=== PATIENT | female | born 1940 | race Caucasian/White ===

== ENCOUNTER → 2016-06-29 | Outpatient (CLI) | payer MEDICARE ==
--- NOTE | 2016-06-29 16:04 | BD ---
EXAMINATION TYPE: MG DEXA axial skeleton. DATE OF EXAM: 06/29/2016 12:58 PM COMPARISON: 2012 CLINICAL HISTORY: disorder of bone and post menopausal female Height: 5' Weight: 141 FRAX RISK QUESTIONS: Alcohol (3 or more units per day): no Family History (Parent hip fracture): no Glucocorticoids (More than 3mos): no (Ex: prednisone, prednisolone, methylprednisolone, dexamethasone, and hydrocortisone). History of Fracture in Adulthood: yes Secondary Osteoporosis: 1. Type 1 Diabetes: no 2. Hyperthyroidism: no 3. Menopause before 45: no 4. Malnutrition: no 5. Chronic liver disease: no Rheumatoid Arthritis: no Current Tobacco Use: no RISK FACTORS HISTORY OF: Other Fractures since Age 52: When: 2000 Active: Postmenopausal woman: MEDICATIONS: Thyroid Medications: Which medication: Levothyroxine How Lon -9 years Additional Medications: prisolec Additional History: post menopausal EXAM MEASUREMENTS: Bone mineral densitometry was performed using the [employer] System. Bone mineral density as measured about the Lumbar spine is: ----- L1-L4(G/cm2): 1.254 T Score Values are ----- L2: 0.3 ----- L3: 0.9 ----- L4: 1.2 ----- L1-L4: 0.6 Bone mineral density has: Decreased -7.1% since study of: 12/30/2012 Bone mineral density about the R hip (g/cm2): 0.877 Bone mineral density about the L hip (g/cm2): 0.767 T Score values are as follows: -----R Neck: -1.2 -----L Neck: -1.9 -----R Intertrochanter: 0.5 -----L Intertrochanter: 0.3 Bone mineral density has: Decreased -1.8% since study of: 12/30/2000 IMPRESSION: Osteopenia (T Score between -2.5 and -1 as noted by T score values: Nirav Hips There is slightly increased risk of fracture and the patient may be considered for treatment. Re-Screen 1-2 years. NOTE: T-SCORE=SD OF THE YOUNG ADULT MEAN.
== END | disposition home or self-care (01) ==
LOC: RADBDWWP 12:34
PROVIDERS: ATTEND Obstetrics & Gynecology
DX: M85.88 Other specified disorders of bone density and structure, other site (principal); M81.0 Age-related osteoporosis without current pathological fracture; M89.9 Disorder of bone, unspecified
CPT/HCPCS: 77080

== ENCOUNTER → 2017-06-11 | Outpatient (CLI) | payer MEDICARE ==
--- NOTE | 2017-06-14 09:07 | MM ---
Reason for exam: screening (asymptomatic). Last mammogram was performed 1 year and 2 months ago. History: Patient is postmenopausal. Physical Findings: A clinical breast exam by your physician is recommended on an annual basis and results should be correlated with mammographic findings. MG 3D Screening Mammo W/Cad Bilateral CC and MLO view(s) were taken. Prior study comparison: March 31, 2016, bilateral MG 3d screening mammo w/cad. March 27, 2015, bilateral MG 3d screening mammo w/cad. The breast tissue is heterogeneously dense. This may lower the sensitivity of mammography. No suspicious abnormality. No significant changes when compared with prior studies. ASSESSMENT: Negative, BI-RAD 1 RECOMMENDATION: Routine screening mammogram of both breasts in 1 year.
== END | disposition home or self-care (01) ==
LOC: RADMAMWWP 10:54
PROVIDERS: ATTEND Internal Medicine
DX: Z12.31 Encounter for screening mammogram for malignant neoplasm of breast (principal)
CPT/HCPCS: 77063; 77067

== ENCOUNTER → 2018-07-27 | Outpatient (CLI) | payer MEDICARE ==
--- NOTE | 2018-07-29 10:08 | MM ---
Reason for exam: screening (asymptomatic). Last mammogram was performed 1 year and 1 month ago. History: Patient is postmenopausal. Physical Findings: A clinical breast exam by your physician is recommended on an annual basis and results should be correlated with mammographic findings. MG 3D Screening Mammo W/Cad Bilateral CC and MLO view(s) were taken. Prior study comparison: June 11, 2017, bilateral MG 3d screening mammo w/cad. March 31, 2016, bilateral MG 3d screening mammo w/cad. The breast tissue is heterogeneously dense. This may lower the sensitivity of mammography. No significant changes when compared with prior studies. ASSESSMENT: Benign, BI-RAD 2 RECOMMENDATION: Routine screening mammogram of both breasts in 1 year.
== END | disposition home or self-care (01) ==
LOC: RADMAMWWP 10:57
PROVIDERS: ATTEND Obstetrics & Gynecology
DX: Z12.31 Encounter for screening mammogram for malignant neoplasm of breast (principal)
CPT/HCPCS: 77063; 77067

== ENCOUNTER 2020-02-15 09:14 | Observation (INO) | payer MEDICARE ==
[2020-02-15] MEDS ORDERED: ASPIRIN 81 MG PO STA (09:51)
[2020-02-15] MEDS ORDERED: NITROGLYCERIN OINT 1 INCH/GM PACKET TOPICAL STA (09:51)
--- NOTE | 2020-02-15 09:54 | ED ---
General Adult HPI - General Chief complaint: Chest Pain Stated complaint: Chest pain Time Seen by Provider: 02/15/20 09:20 Source: patient, EMS, RN notes reviewed Mode of arrival: EMS Limitations: no limitations - History of Present Illness Initial comments: Patient is a pleasant 79-year-old female presenting to the emergency department complaints of discomfort of her chest and right arm and neck. Onset of symptoms was when she woke this morning. Patient did have some associated palpitations. Symptoms were moderate however now are mild. Patient states discomfort does increase slightly with position changes. No history of similar symptoms prev iously. No associated dyspnea. No weakness. - Related Data Home Medications Medication Instructions Recorded Confirmed Levothyroxine Sodium [Synthroid] 25 mcg PO DAILY 03/19/15 02/15/20 Omeprazole [PriLOSEC] 20 mg PO DAILY 03/19/15 02/15/20 Allergies Allergy/AdvReac Type Severity Reaction Status Date / Time No Known Allergies Allergy Verified 02/15/20 10:45 Review of Systems ROS Statement: Those systems with pertinent positive or pertinent negative responses have been documented in the HPI. ROS Other: All systems not noted in ROS Statement are negative. Constitutional: Denies: fever Eyes: Denies: eye pain ENT: Denies: ear pain Respiratory: Denies: cough, dyspnea Cardiovascular: Reports: as per HPI, chest pain, palpitations Endocrine: Denies: fatigue Gastrointestinal: Denies: abdominal pain Genitourinary: Denies: dysuria Musculoskeletal: Denies: back pain Skin: Denies: rash Neurological: Denies: weakness Past Medical History History of Any Multi-Drug Resistant Organisms: None Reported Additional Past Surgical History / Comment(s): Gallblader surgery & ovary surgery Past Psychological History: Anxiety Smoking Status: Never smoker Past Alcohol Use History: None Reported Past Drug Use History: None Reported General Exam Limitations: no limitations General appearance: alert, in no apparent distress Head exam: Present: normocephalic Eye exam: Present: normal appearance Neck exam: Present: normal inspection Respiratory exam: Present: normal lung sounds bilaterally. Absent: chest wall tenderness Cardiovascular Exam: Present: regular rate, normal rhythm Expanded Peripheral pulses: 2+: Radial (R), Radial (L), Dorsalis Pedis (R), Dorsalis Pedis (L) GI/Abdominal exam: Present: soft. Absent: tenderness Extremities exam: Present: normal inspection, full ROM, tenderness (Minimal tenderness right shoulder and trapezius region). Absent: pedal edema, calf tenderness Neurological exam: Present: alert. Absent: motor sensory deficit Psychiatric exam: Present: normal affect, normal mood Skin exam: Present: normal color Course Vital Signs 02/15/20 02/15/20 02/15/20 09:19 10:23 11:00 Temperature 97.8 F Pulse Rate 88 64 64 Respiratory 18 18 18 Rate Blood Pressure 149/84 142/72 126/73 O2 Sat by Pulse 96 96 96 Oximetry 02/15/20 12:00 Temperature Pulse Rate 65 Respiratory 18 Rate Blood Pressure 135/78 O2 Sat by Pulse 96 Oximetry EKG Findings - EKG Comments: EKG Findings:: Normal sinus rhythm at 65. MD 126. QRS 84. QT 404. QTC 420. Normal axis. Normal QRS. Nonspecific T waves. Medical Decision Making - Medical Decision Making Patient reevaluated and resting comfortably in bed. Patient and family updated on results and plan. Case was discussed in detail with Dr. Singleton, who will admit covering for Dr. Rosario. - Lab Data Result diagrams: 02/15/20 10:00 02/15/20 10:00 Lab Results 02/15/20 02/15/20 02/15/20 Range/Units 10:00 10:00 10:00 WBC 4.9 (3.8-10.6) k/uL RBC 5.42 H (3.80-5.40) m/uL Hgb 14.4 (11.4-16.0) gm/dL Hct 45.0 (34.0-46.0) % MCV 83.1 (80.0-100.0) fL MCH 26.5 (25.0-35.0) pg MCHC 31.9 (31.0-37.0) g/dL RDW 14.4 (11.5-15.5) % Plt Count 274 (150-450) k/uL Neutrophils % 60 % Lymphocytes % 26 % Monocytes % 9 % Eosinophils % 2 % Basophils % 1 % Neutrophils # 2.9 (1.3-7.7) k/uL Lymphocytes # 1.3 (1.0-4.8) k/uL Monocytes # 0.4 (0-1.0) k/uL Eosinophils # 0.1 (0-0.7) k/uL Basophils # 0.1 (0-0.2) k/uL PT 9.8 (9.0-12.0) sec INR 0.9 (<1.2) APTT 26.6 (22.0-30.0) sec D-Dimer 0.93 H (<0.60) mg/L FEU Sodium 139 (137-145) mmol/L Potassium 4.0 (3.5-5.1) mmol/L Chloride 105 (98-107) mmol/L Carbon Dioxide 28 (22-30) mmol/L Anion Gap 6 mmol/L BUN 12 (7-17) mg/dL Creatinine 0.77 (0.52-1.04) mg/dL Est GFR (CKD-EPI)AfAm 86 (>60 ml/min/1.73 sqM) Est GFR (CKD-EPI)NonAf 75 (>60 ml/min/1.73 sqM) Glucose 94 (74-99) mg/dL Calcium 9.2 (8.4-10.2) mg/dL Magnesium 2.1 (1.6-2.3) mg/dL Total Bilirubin 1.3 (0.2-1.3) mg/dL AST 32 (14-36) U/L ALT 14 (4-34) U/L Alkaline Phosphatase 75 (38-126) U/L Troponin I (0.000-0.034) ng/mL Total Protein 7.1 (6.3-8.2) g/dL Albumin 4.1 (3.5-5.0) g/dL Amylase 55 (30-110) U/L Lipase 69 (23-300) U/L 02/15/20 Range/Units 10:00 WBC (3.8-10.6) k/uL RBC (3.80-5.40) m/uL Hgb (11.4-16.0) gm/dL Hct (34.0-46.0) % MCV (80.0-100.0) fL MCH (25.0-35.0) pg MCHC (31.0-37.0) g/dL RDW (11.5-15.5) % Plt Count (150-450) k/uL Neutrophils % % Lymphocytes % % Monocytes % % Eosinophils % % Basophils % % Neutrophils # (1.3-7.7) k/uL Lymphocytes # (1.0-4.8) k/uL Monocytes # (0-1.0) k/uL Eosinophils # (0-0.7) k/uL Basophils # (0-0.2) k/uL PT (9.0-12.0) sec INR (<1.2) APTT (22.0-30.0) sec D-Dimer (<0.60) mg/L FEU Sodium (137-145) mmol/L Potassium (3.5-5.1) mmol/L Chloride (98-107) mmol/L Carbon Dioxide (22-30) mmol/L Anion Gap mmol/L BUN (7-17) mg/dL Creatinine (0.52-1.04) mg/dL Est GFR (CKD-EPI)AfAm (>60 ml/min/1.73 sqM) Est GFR (CKD-EPI)NonAf (>60 ml/min/1.73 sqM) Glucose (74-99) mg/dL Calcium (8.4-10.2) mg/dL Magnesium (1.6-2.3) mg/dL Total Bilirubin (0.2-1.3) mg/dL AST (14-36) U/L ALT (4-34) U/L Alkaline Phosphatase (38-126) U/L Troponin I <0.012 (0.000-0.034) ng/mL Total Protein (6.3-8.2) g/dL Albumin (3.5-5.0) g/dL Amylase (30-110) U/L Lipase (23-300) U/L - Radiology Data Radiology results: report reviewed (CT and show negative for pulmonary embolism. There is some concern for pulmonary arterial hypertension), image reviewed (Chest x-ray shows no acute process) Disposition Clinical Impression: Chest pain Disposition: ADMITTED IP TO THIS HOSP Is patient prescribed a controlled substance at d/c from ED?: No Referrals: Urban Rosario MD [Primary Care Provider] - 1-2 days Decision Time: 12:21
[2020-02-15 10:26] LABS: Basophils # (A) 0.1 k/uL (0-0.2); Basophils % (A) 1 %; Eosinophils # (A) 0.1 k/uL (0-0.7); Eosinophils % (A) 2 %; HGB 14.4 gm/dL (11.4-16.0); Lymphocytes # (A) 1.3 k/uL (1.0-4.8); Lymphocytes % (A) 26 %; MCH 26.5 pg (25.0-35.0); MCHC 31.9 g/dL (31.0-37.0); MCV 83.1 fL (80.0-100.0); Mean Platelet Volume 6.6; Monocytes # (A) 0.4 k/uL (0-1.0); Monocytes % (A) 9 %; Neutrophils # (A) 2.9 k/uL (1.3-7.7); Neutrophils % (A) 60 %; Platelet Count 274 k/uL (150-450); RBC 5.42 m/uL (3.80-5.40); RDW 14.4 % (11.5-15.5); WBC 4.9 k/uL (3.8-10.6)
[2020-02-15 10:40] LABS: INR 0.9 (<1.2); Partial Thromboplastin Time 26.6 sec (22.0-30.0); Prothrombin Time 9.8 sec (9.0-12.0)
[2020-02-15 10:42] LABS: Albumin 4.1 g/dL (3.5-5.0); Calcium 9.2 mg/dL (8.4-10.2); Magnesium 2.1 mg/dL (1.6-2.3); Total Bilirubin 1.3 mg/dL (0.2-1.3); Total Protein 7.1 g/dL (6.3-8.2)
[2020-02-15 10:49] LABS: D-Dimer 0.93 mg/L FEU (<0.60)
--- NOTE | 2020-02-15 11:18 | XR ---
EXAMINATION TYPE: XR chest 2V DATE OF EXAM: 02/15/2020 COMPARISON: Prior chest x-ray dated 07/08/2013 HISTORY: Chest pain TECHNIQUE: Frontal and lateral views of the chest are obtained. FINDINGS: There are overlying cardiac leads. There is no focal air space opacity, pleural effusion, o r pneumothorax seen. The cardiac silhouette size is within normal limits. The aorta is dense. Retro cardiac density with central lucency suggests hiatal hernia with partial intrathoracic stomach. Surgi south clips present in the right upper quadrant. The osseous structures are intact. IMPRESSION: No acute cardiopulmonary process.
--- NOTE | 2020-02-15 11:43 | CT ---
EXAMINATION TYPE: CT angio chest DATE OF EXAM: 02/15/2020 COMPARISON: Radiograph same date HISTORY: 79-year-old female Right sided chest and shoulder pain TECHNIQUE: Contiguous axial scanning of the chest performed with IV Contrast, patient injected with 1 00 mL of Isovue 370. Coronal/sagittal MIP reconstructions performed. CT DLP: 224.1 mGycm Automated exposure control for dose reduction was used. FINDINGS: Heart upper limits of normal in size without pericardial effusion. No flattening of the interventricu lar septum or reflux of contrast into the hepatic veins. Ectatic aortic root at 3.8 cm and ascending aorta as well. Mild atherosclerotic arch calcifications. Conventional arch vessel branching anatomy. Ectatic upper descending thoracic aorta at 3.1 cm. No thoracic lymphadenopathy by CT size criteria. Satisfactory opacification of the pulmonary arterial system. A focal hypodensity within the posterior right lower lobe, axial image 66 does not conform to the course of a pulmonary artery branch. A smal l bronchial lymph node is suggested measuring 6 mm. No evidence for pulmonary embolus. However, there is mildly enlarged caliber to the main right and the pulmonary arteries measuring up to 2.6 cm sugge sting pulmonary arterial hypertension. Prominent hazy areas of probable atelectasis. There may be slight mosaic attenuation in the upper diana gs. No consolidation or pleural effusion. Moderate to large hiatal hernia involving half of the stomach. Cholecystectomy clips. 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 Fatty matrix heman gioma within the T5 vertebral body. IMPRESSION: 1. NO EVIDENCE FOR PULMONARY EMBOLUS. HOWEVER, FINDINGS SUGGEST UNDERLYING PULMONARY ARTERIAL HYPERTE NSION. 2. PROMINENT HAZY AREAS OF ATELECTASIS THROUGHOUT THE LUNGS. GIVEN SOME MOSAIC ATTENUATION IN THE UPP ER LUNGS, CORRELATE FOR SMALL AIRWAYS DISEASE. 3. MODERATE TO LARGE HIATAL HERNIA INVOLVING HALF OF THE STOMACH.
[2020-02-15] MEDS ORDERED: NITROGLYCERIN SL TABS 0.4 MG TAB SUBLINGUAL PRN (12:22)
[2020-02-15] MEDS: NITROGLYCERIN OINT 1 INCH/GM PACKET TOPICAL SCH (18:27)
[2020-02-15] MEDS ORDERED: ACETAMINOPHEN TAB 325 MG TAB PO PRN (19:27)
--- NOTE | 2020-02-15 21:31 | P.HPIM ---
History of Present Illness H&P Date: 02/15/20 Chief Complaint: Acute chest pain and angina, large hiatal hernia, significant shortness of 79-year-old female one of Dr. herrera's patient with past medical GERD along with hypothyroidism has been on medication for it has been doing well. Patient apparently developed to have early this morning significant upper mid chest pain radiating toward the neck and the right shoulder area symptoms become more intense and kept having worsening neck stiffness pain along with right shoulder discomfort blood pressure was significantly elevated at home at 240/110 patient ended up coming to the emergency department and after the third nitroglycerin her wrap chest pain slight was subsided. Patient CK with troponin along with EKG didn't show any abnormality her d-dimer came back elevated CTA shows no sign of pulmonary embolism but surprisingly showed large hiatal hernia with almost have the stomach above the diaphragmatic which probably with cause a symptom of the first place except with a convincing evidence that she had significant shortness of breath or chest pain along with palpitation patient will be hospitalized continue to watch CK with troponin echocardiogram was order patient be seen cardiology of testing are negative including stress test patient then eventually need referral for possible Gina fundoplication specially with the large hiatal hernia in the meanwhile we'll titrate her PPI to pantoprazole 40 mg twice a day. Review of Systems CONSTITUTIONAL: Well-developed no acute respiratory distress. EYES: No icterus sclerae, no conjunctivitis. EARS, NOSE, MOUTH, THROAT, and FACE: No sore throat, lymphadenopathy, carotid bruits or deformity. RESPIRATORY: Mild chest pain and shortness of breath. CARDIOVASCULAR: Positive chest pain anginal type with mild palpitation with slight nausea and lightheadedness with significantly elevated blood pressure. GASTROINTESTINAL: Significant heartburn with nausea no vomiting large hiatal hernia was found on CTA patient has been on PPI for the last few years. GENITOURINARY: Negative for Hematuria or UTI, no kidney stones. INTEGUMENT/BREAST: Negative for any muscular injury with mild osteoarthritis.. HEMATOLOGIC/LYMPHATIC: Negative for bleed or purpura. MUSCULOSKELTAL: Negative for Myalgia or arthralgia. NEURLOGICAL: No LOC, Sz or syncope, blurred vision dizziness or abnormality.. BEHAVIORAL/PSYCH: Negative. ENDOCRINE: Negative. 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 Family history: Patient has 2 children with no major medical problem. Patient had 6 siblings one of them from horse accident in early age, patient mother age 85 from Alzheimer father 85 from CAD. Past Medical History History of Any Multi-Drug Resistant Organisms: None Reported Additional Past Surgical History / Comment(s): Gallblader surgery & ovary surgery Past Psychological History: Anxiety Smoking Status: Never smoker Past Alcohol Use History: None Reported Past Drug Use History: None Reported Medications and Allergies Home Medications Medication Instructions Recorded Confirmed Type Levothyroxine Sodium [Synthroid] 25 mcg PO DAILY 03/19/15 02/15/20 History Pantoprazole [Protonix] 40 mg PO AC-BID #60 tablet. 02/16/20 Rx Allergies Allergy/AdvReac Type Severity Reaction Status Date / Time No Known Allergies Allergy Verified 02/15/20 10:45 Physical Exam Vitals: Vital Signs Temp Pulse Resp BP Pulse Ox 02/15/20 12:35 97.8 F 65 18 135/78 96 02/15/20 12:00 65 18 135/78 96 02/15/20 11:00 64 18 126/73 96 02/15/20 10:23 64 18 142/72 96 02/15/20 09:19 97.8 F 88 18 149/84 96 Intake and Output 02/15/20 02/15/20 02/15/20 06:59 14:59 22:59 Other: Weight 65.771 kg General Appearance: Alert, cooperative, no distress, appears stated age. Neck HEENT: Supple, no lymphadenopathy, no thyroid enlargement, no carotid bruits. Lungs: Clear to auscultation without crackles or wheezes no rhonchi, no deformity. Chest Wall: Chest wall normal expansion with deep inspiration no tenderness and no deformity was found on exam, no costochondral pain or discomfort. Heart: Regular rate and rhythm, S1, S2 normal, no murmur, rub or gallop. Back: Symmetric, no curvature, ROM normal, no CVA tenderness. Abdomen: Soft, non-tender, bowel sounds active all four quadrants, no masses, no organomegaly. Extremities: Extremities normal, atraumatic, no cyanosis or edema. Pulses: 2+ and symmetric. Skin: Skin color, texture, tugor normal, no rashes or lesions. Neurologic: Alert oriented x3 cranial nerves II through XII intact, no motor deficit, no abnormal balance or gait. Results CBC & Chem 7: 02/15/20 10:00 02/15/20 10:00 Labs: Abnormal Lab Results - Last 24 Hours (Table) 02/15/20 02/15/20 Range/Units 10:00 10:00 RBC 5.42 H (3.80-5.40) m/uL D-Dimer 0.93 H (<0.60) mg/L FEU Thrombosis Risk Factor Assmnt - DVT/VTE Prophylaxis DVT/VTE Prophylaxis: Pharmacologic Prophylaxis ordered, Mechanical Prophylaxis ordered Assessment and Plan Assessment: 1 severe chest pain more anginal type: Patient be hospitalized, continue aspir in, cardiology consultation continue CK with troponin 3, patient be nothing by mouth after midnight for possible stress test 2 severe dyspnea and shortness of breath most likely combination of the chest pain along with large hiatal hernia occupying part of the chest area causing more symptoms continue supportive care and if needed oxygen through the night. 3 very large hiatal hernia: With almost half the stomach above the diaphragmatic: Patient will be managed with larger doses of PPI eventually might need outpatient follow up for possible surgery for hiatal hernia. The meanwhile continue PPI twice a day. 4 hypothyroidism: Continue patient on levothyroxine. 5 DVT prophylaxis: Knee-high ELVIN hose and Venodyne boots. 6 GI prophylaxis: Continue patient on pantoprazole. CODE STATUS: Full code. The patient to observation status for more than 2 night stay.
[2020-02-15] MEDS ORDERED: diazePAM 5 MG TAB PO PRN (21:32)
[2020-02-16] MEDS: NITROGLYCERIN OINT 1 INCH/GM PACKET TOPICAL SCH ×2 (01:08→06:16)
[2020-02-16 04:02] VITALS: RESP 16
[2020-02-16] MEDS ORDERED: LEVOTHYROXINE 25 MCG TAB PO SCH (06:30)
[2020-02-16 07:16] LABS: Cholesterol 223 mg/dL (<200); HDL Cholesterol 45 mg/dL (40-60); LDL Cholesterol,Calculated 139 mg/dL (0-99); Triglycerides 193 mg/dL (<150)
[2020-02-16] MEDS ORDERED: PANTOPRAZOLE 40 MG TABLET PO SCH ×2 (07:30)
[2020-02-16 08:26] VITALS: TEMP 97.9
[2020-02-16] MEDS ORDERED: ASPIRIN 325 MG TAB PO SCH (09:00)
--- NOTE | 2020-02-16 10:14 | ECHOF ---
Referral Reason:CP MEASUREMENTS -------- HEIGHT: 152.4 cm WEIGHT: 65.8 kg BP: 135/78 RVIDd: 2.8 cm (< 3.3) IVSd: 1.0 cm (0.6 - 1.1) LVIDd: 4.9 cm (3.9 - 5.3) LVPWd: 0.9 cm (0.6 - 1.1) IVSs: 1.5 cm LVIDs: 3.0 cm LVPWs: 1.4 cm LA Diam: 2.2 cm (2.7 - 3.8) LAESV Index (A-L): 24.66 ml/m Ao Diam: 2.8 cm (2.0 - 3.7) AV Cusp: 1.7 cm (1.5 - 2.6) MV EXCURSION: 13.275 mm (> 18.000) MV EF SLOPE: 75 mm/s (70 - 150) EPSS: 0.5 cm MV E James: 0.68 m/s MV DecT: 214 ms MV A James: 0.87 m/s MV E/A Ratio: 0.78 AR PHT: 756 ms RAP: 5.00 mmHg RVSP: 24.79 mmHg FINDINGS -------- Sinus rhythm. This was a technically good study. The left ventricular size is normal. Left ventricular wall thickness is normal. Overall left vent ricular systolic function is normal with, an EF between 60 - 65 %. The right ventricle is normal in size. Normal LA size by volume 22+/-6 ml/m2. The right atrium is normal in size. Lipomatous Hypertrophy of the atrial septum is present There is mild aortic valve sclerosis. There is mild aortic regurgitation. Mild mitral regurgitation is present. Mild tricuspid regurgitation present. Right ventricular systolic pressure is normal at < 35 mmHg. Trace/mild (physiologic) pulmonic regurgitation. The aortic root size is normal. Normal inferior vena cava with normal inspiratory collapse consistent with estimated right atrial pre ssure of 5 mmHg. There is no pericardial effusion. CONCLUSIONS -------- 1. The left ventricular size is normal. 2. Left ventricular wall thickness is normal. 3. Overall left ventricular systolic function is normal with, an EF between 60 - 65 %. 4. Lipomatous Hypertrophy of the atrial septum is present 5. There is mild aortic valve sclerosis. 6. There is mild aortic regurgitation. 7. Mild mitral regurgitation is present. 8. Mild tricuspid regurgitation present. 9. Trace/mild (physiologic) pulmonic regurgitation. 10. There is no pericardial effusion. [employer]: Lakeisha Bobo RDCS
--- NOTE | 2020-02-16 10:16 | P.CRDCN ---
History of Present Illness Consult date: 02/16/20 History of present illness: CHIEF COMPLAINT: Chest pain HISTORY OF PRESENT ILLNESS: This is a 79-year old female with a past medical history significant for hypothyroidism, GERD, and anxiety. 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 We have been asked to see the patient in consultation for chest pain. Patient examined this morning at the bedside. Patient states yesterday earning she was getting out of bed and felt her heart was racing and some pain in her right arm. She describes the pain as an aching sensation. She denies having any chest pain. She states this discomfort in her arm lasted for approximately 30 minutes area she reports never having this type of discomfort before so she decided to come to the emergency room for further evaluation. Patient reports a family history of heart disease and states her dad suffered a heart attack. DIAGNOSTICS: EKG reveals sinus rhythm. Heart rate 65. No signs of acute ischemia. Chest xray negative for acute process CTA chest: No evidence of pulmonary embolism. Pulmonary hypertension. Moderate to large hiatal hernia Laboratory data: WBC 4.9. Hemoglobin 14.4. Platelet count 274. D-dimer 0.93. Sodium 139. Potassium 4.0. BUN 12. Creatinine 0.77. Troponin negative 3. Current home cardiac medications include none REVIEW OF SYSTEMS: At the time of my exam: CONSTITUTIONAL: Denies fever or chills. HEENT: Denies blurred vision, vision changes, or eye pain. Denies hemoptysis CARDIOVASCULAR: Denies chest pain, orthopnea, PND or palpitations RESPIRATORY: No shortness of breath. GASTROINTESTINAL: Denies abdominal pain. Denies nausea or vomiting. HEMATOLOGIC: Denies bleeding disorders. GENITOURINARY: Denies any blood in urine. SKIN: Denies pruitis. Denies rash. PHYSICAL EXAM: VITAL SIGNS: Reviewed. GENERAL: Well-developed in no acute distress. HEENT: Head is normocephalic. Pupils are equal, round. Sclerae anicteric. Mucous membranes of the mouth are moist. Neck supple. No JVD or thyromegaly LUNGS: Respirations even and unlabored. Lungs essentially clear to auscultation bilaterally. HEART: Regular rate and rhythm. S1 and S2 heard. ABDOMEN: Soft. Nondistended. Nontender. EXTREMITIES: Normal range of motion. No clubbing or cyanosis. Peripheral pulses intact. No lower extremity edema NEUROLOGIC: Awake and alert. Oriented x 3. ASSESSMENT: Palpitations with right arm pain Large hiatal hernia Family history of heart disease Hypothyroidism PLAN: An acute coronary event has been ruled out Continue telemetry monitoring Continue to monitor blood pressure. Patient has labile blood pressure measurements ranging from systolic of 106-162. Will continue to monitor blood pressure to see if patient has a trend of high blood pressure readings before initiating any anti-hypertensive medications. Obtain 2-D echo to assess cardiac structure and function Patient to undergo stress echo today to assess for reversible ischemia If stress test is negative and echocardiogram does not reveal any significant abnormalities, patient may be discharged home today from a cardiac standpoint and follow up on an outpatient basis Nurse practitioner note has been reviewed by physician. Signing provider agrees with the documented findings, assessment, and plan of care. Past Medical History History of Any Multi-Drug Resistant Organisms: None Reported Additional Past Surgical History / Comment(s): Gallblader surgery & ovary surgery Past Psychological History: Anxiety Smoking Status: Never smoker Past Alcohol Use History: None Reported Past Drug Use History: None Reported Medications and Allergies Home Medications Medication Instructions Recorded Confirmed Type Levothyroxine Sodium [Synthroid] 25 mcg PO DAILY 03/19/15 02/15/20 History Pantoprazole [Protonix] 40 mg PO AC-BID #60 tablet. 02/16/20 Rx Allergies Allergy/AdvReac Type Severity Reaction Status Date / Time No Known Allergies Allergy Verified 02/15/20 10:45 Physical Exam Vitals: Vital Signs Temp Pulse Pulse Resp BP BP Pulse Ox 02/16/20 08:24 97.9 F 84 16 162/74 96 02/16/20 03:36 98.1 F 16 106/64 95 02/15/20 19:40 98.1 F 84 17 120/67 94 L 02/15/20 15:00 97.6 F 74 16 108/67 94 L 02/15/20 12:35 97.8 F 65 18 135/78 96 02/15/20 12:00 65 18 135/78 96 02/15/20 11:00 64 18 126/73 96 02/15/20 10:23 64 18 142/72 96 Intake and Output 02/15/20 02/16/20 02/16/20 22:59 06:59 14:59 Other: Voiding Method Toilet Toilet # Voids 2 2 Results 02/15/20 10:00 02/15/20 10:00 Cardiac Enzymes 02/15/20 02/15/20 02/15/20 Range/Units 10:00 10:00 14:00 AST 32 (14-36) U/L Troponin I <0.012 <0.012 (0.000-0.034) ng/mL 02/15/20 Range/Units 17:23 AST (14-36) U/L Troponin I <0.012 (0.000-0.034) ng/mL Coagulation 02/15/20 Range/Units 10:00 PT 9.8 (9.0-12.0) sec APTT 26.6 (22.0-30.0) sec Lipids 02/16/20 Range/Units 06:47 Triglycerides 193 H (<150) mg/dL Cholesterol 223 H (<200) mg/dL HDL Cholesterol 45 (40-60) mg/dL CBC 02/15/20 Range/Units 10:00 WBC 4.9 (3.8-10.6) k/uL RBC 5.42 H (3.80-5.40) m/uL Hgb 14.4 (11.4-16.0) gm/dL Hct 45.0 (34.0-46.0) % Plt Count 274 (150-450) k/uL Comprehensive Metabolic Panel 02/15/20 Range/Units 10:00 Sodium 139 (137-145) mmol/L Potassium 4.0 (3.5-5.1) mmol/L Chloride 105 (98-107) mmol/L Carbon Dioxide 28 (22-30) mmol/L BUN 12 (7-17) mg/dL Creatinine 0.77 (0.52-1.04) mg/dL Glucose 94 (74-99) mg/dL Calcium 9.2 (8.4-10.2) mg/dL AST 32 (14-36) U/L ALT 14 (4-34) U/L Alkaline Phosphatase 75 (38-126) U/L Total Protein 7.1 (6.3-8.2) g/dL Albumin 4.1 (3.5-5.0) g/dL Current Medications Generic Name Dose Route Start Last Admin Trade Name Freq PRN Reason Stop Dose Admin Acetaminophen 650 mg 02/15/20 19:27 02/15/20 19:35 Acetaminophen Tab 325 Mg Tab PO 650 mg Q6HR PRN Administration Fever and/ or Pain Aspirin 325 mg 02/16/20 09:00 02/16/20 08:19 Aspirin 325 Mg Tab PO 325 mg DAILY SIMON Administration Diazepam 5 mg 02/15/20 21:32 02/15/20 22:25 Diazepam 5 Mg Tab PO 5 mg HS PRN Administration Muscle Spasm Levothyroxine Sodium 25 mcg 02/16/20 06:30 02/16/20 06:24 Levothyroxine 25 Mcg Tab PO 25 mcg DAILY@0630 SIMON Administration Nitroglycerin 0.4 mg 02/15/20 12:22 Nitroglycerin Sl Tabs 0.4 Mg Tab SUBLINGUAL Q5M PRN Chest Pain Nitroglycerin 1 inch 02/15/20 18:00 02/16/20 06:16 Nitroglycerin Oint 1 Inch/Gm Packet TOPICAL Not Given Q6HR SIMON Pantoprazole Sodium 40 mg 02/16/20 07:30 02/16/20 06:24 Pantoprazole 40 Mg Tablet PO 40 mg AC-BID SIMON Administration Sodium Chloride 10 ml 02/15/20 21:00 02/15/20 19:35 Sodium Chloride 0.9% Flush 10 Ml Syringe IV 10 ml BID SIMON Administration Intake and Output 02/15/20 02/16/20 02/16/20 22:59 06:59 14:59 Other: Voiding Method Toilet Toilet # Voids 2 2 02/15/20 10:00 02/15/20 10:00
--- NOTE | 2020-02-16 11:10 | P.STRESS ---
- Stress Test Note Stress Test Results/Findings: Exam Performed: stress echo exercise Exam Date: 02/16/20 Reason for Exam: CHEST PAIN Height: 5 ft Weight: 65.77 kg Protocol: ETHEL Stage: 2 Duration of Exercise: 4:00 Resting Heart Rate: 72 Resting Blood Pressure: 136/91 Maximum Achieved Heart Rate: 140 Maximum Achieved Blood Pressure: 156/82 85% PMHR: 122 100% PMHR: 143 METS: 5.8 Technologist Comment: Stress Test Results/Findings: This is a 79-year-old female with history of ischemic heart disease in the family being evaluated for chest pain and palpitations. Stress data: Baseline EKG showed sinus rhythm with normal IA interval, QRS duration with nonspecific ST-T changes.. Blood pressure at rest is 136/91, pulse rate of 72. Patient walked on a Ethel protocol for 4 minutes achieving a maximum heart rate of 134 with a blood pressure 156/82. EKGs taken during exercise showed mild ST-T changes in inferolateral leads with off millimeter ST depression. Patient complained of some shortness of breath.. Echo data: Baseline echo images showed normal wall motion and thickening. Excise echo images showed augmentation of wall motion and thickening in all the segments. Final impression: #1. Borderline ST-T changes which are not diagnostic for ischemia #2. Negative stress echo.
--- NOTE | 2020-02-16 12:25 | ECHOS ---
Stress Test Results/Findings: Exam Performed: stress echo exercise Exam Date: 02/16/20 Reason for Exam: CHEST PAIN Height: 5 ft Weight: 65.77 kg Protocol: ETHEL Stage: 2 Duration of Exercise: 4:00 Resting Heart Rate: 72 Resting Blood Pressure: 136/91 Maximum Achieved Heart Rate: 140 Maximum Achieved Blood Pressure: 156/82 85% PMHR: 122 100% PMHR: 143 METS: 5.8 Technologist Comment: Stress Test Results/Findings: This is a 79-year-old female with history of ischemic heart disease in the family being evaluated for chest pain and palpitations. Stress data: Baseline EKG showed sinus rhythm with normal MD interval, QRS duration with nonspecific ST-T changes.. Blood pressure at rest is 136/91, pulse rate of 72. Patient walked on a Ethel protocol for 4 minutes achieving a maximum heart rate of 134 with a blood pressure 156/82. EKGs taken during exercise showed mild ST-T changes in inferolateral leads with off millimeter ST depression. Patient complained of some shortness of breath.. Echo data: Baseline echo images showed normal wall motion and thickening. Excise echo images showed augmentation of wall motion and thickening in all the segments. Final impression: #1. Borderline ST-T changes which are not diagnostic for ischemia #2. Negative stress echo. NEETU
--- NOTE | 2020-02-16 12:38 | P.DS ---
Providers Date of admission: 02/15/20 12:24 Expected date of discharge: 02/16/20 Attending physician: Davis Singleton Consults: 02/15/20 12:22 Consult Physician Urgent Consulting Provider: Madi Chairez Consult Reason/Comments: cp Do you want consulting provider notified?: Yes Primary care physician: [facility] Course: 79-year-old female one of Dr. herrera's patient with past medical GERD along with hypothyroidism has been on medication for it has been doing well. Patient apparently developed to have early this morning significant upper mid chest pain radiating toward the neck and the right shoulder area symptoms become more intense and kept having worsening neck stiffness pain along with right shoulder discomfort blood pressure was significantly elevated at home at 240/110 patient ended up coming to the emergency department and after the third nitroglycerin her wrap chest pain slight was subsided. Patient CK with troponin along with EKG didn't show any abnormality her d-dimer came back elevated CTA shows no sign of pulmonary embolism but surprisingly showed large hiatal hernia with almost have the stomach above the diaphragmatic which probably with cause a symptom of the first place except with a convincing evidence that she had significant shortness of breath or chest pain along with palpitation patient will be hospitalized continue to watch CK with troponin echocardiogram was order patient be seen cardiology of testing are negative including stress test patient then eventually need referral for possible Gina fundoplication specially with the large hiatal hernia in the meanwhile we'll titrate her PPI to pantoprazole 40 mg twice a day. 02/15: Patient has been seen by cardiology and underwent stress echo which came back negative and patient was cleared for discharge home. Echocardiogram reveals EF of 60-65%, mild aortic regurgitation, mild mitral regurgitation, mild tricuspid regurgitation. She has been afebrile, heart rate 84, blood pressure 162/74, pulse ox 96% on room air. Troponins were negative on 3 draws. Triglycerides 193, cholesterol 223, LDL 139 and HDL 45. Patient will be discharged home today in stable condition. Prescription has been sent to her pharmacy for Protonix. DISCHARGE DIAGNOSES 1 severe chest pain most likely due to gastroesophageal reflux disease. 2 severe dyspnea and shortness of breath most likely combination of the chest pain along with large hiatal hernia 3 very large hiatal hernia 4 hypothyroidism Discharge plan: Home Impression and plan of care have been directed as dictated by the signing physician. Berta Domingo nurse practitioner acting as scribe for signing physician. Patient Condition at Discharge: Good Plan - Discharge Summary Discharge Rx Participant: No New Discharge Prescriptions: New Pantoprazole [Protonix] 40 mg PO AC-BID #60 tablet. Continue Levothyroxine Sodium [Synthroid] 25 mcg PO DAILY Discontinued Omeprazole [PriLOSEC] 20 mg PO DAILY Discharge Medication List Levothyroxine Sodium [Synthroid] 25 mcg PO DAILY 03/19/15 [History] Pantoprazole [Protonix] 40 mg PO AC-BID #60 tablet. 02/16/20 [Rx] Follow up Appointment(s)/Referral(s): Urban Rosario MD [Primary Care Provider] - 1 Week Discharge Disposition: HOME SELF-CARE
[2020-02-16 15:31] VITALS: BP 137/79; PULSE 82
[2020-02-17] MEDS ORDERED: ASPIRIN 81 MG PO SCH (09:00)
== END 2020-02-16 15:40 | disposition home or self-care (01) ==
LOC: EC 09:14 → 3NCARDOBS 12:24
PROVIDERS: ADMIT Internal Medicine Geriatric Medicine; ATTEND Internal Medicine Geriatric Medicine
DX: R07.9 Chest pain, unspecified (principal); R03.0 Elevated blood-pressure reading, without diagnosis of hypertension; R06.00 Dyspnea, unspecified; K21.9 Gastro-esophageal reflux disease without esophagitis; E03.9 Hypothyroidism, unspecified; F41.9 Anxiety disorder, unspecified; K44.9 Diaphragmatic hernia without obstruction or gangrene; Z79.890 Hormone replacement therapy; Z82.49 Family history of ischemic heart disease and other diseases of the circulatory system
CPT/HCPCS: 93005 ×2; 99285; 36415; 93306; 93351; 85379; 80061; 80053; 82150; 83690; 83735; 84484; 85025; 85610; 85730; 71046; 71275; G0378 ×2; Q9967

== ENCOUNTER → 2020-10-15 | Outpatient (CLI) | payer MEDICARE ==
--- NOTE | 2020-10-17 10:38 | BD ---
EXAMINATION TYPE: Axial Bone Density DATE OF EXAM: 10/15/2020 COMPARISON: NONE CLINICAL HISTORY: Postmenopausal Height: 4 FT 11 IN Weight: 147 FRAX RISK QUESTIONS: Alcohol (3 or more units per day): NO Family History (Parent hip fracture): NO Glucocorticoids (More than 3mos): NO (Ex: prednisone, prednisolone, methylprednisolone, dexamethasone, and hydrocortisone). History of Fracture in Adulthood: YES Secondary Osteoporosis: 1. Type 1 Diabetes: NO 2. Hyperthyroidism: NO 3. Menopause before 45: NO 4. Malnutrition: NO 5. Chronic liver disease: NO Rheumatoid Arthritis: NO Current Tobacco Use: NO RISK FACTORS HISTORY OF: Surgery to Spine/Hip(right/left)/Wrist (right/left): NO Family History of Osteoporosis: NO Active: YES Diet low in dairy products/other sources of calcium: NO Postmenopausal woman: AGE 52 Take estrogen and/or progesterone medications: NO Lost more than 2 inches in height since high school: YES MEDICATIONS: Thyroid Medications: YES Which medication: LEVOTHYROXINE How Lon-3 YEARS Additional Medications: LEVOTHYROXINE Additional History: EXAM MEASUREMENTS: Bone mineral densitometry was performed using the [employer] System. Bone mineral density as measured about the Lumbar spine is: ----- L1-L4(G/cm2): 1.293 T Score Values are as follows: ----- L2: 0.0 ----- L3: 1.1 ----- L4: 2.9 ----- L1-L4: 0.9 Bone mineral density has: INCREASED 5.0 % since study of: 2017 Bone mineral density about the R hip (g/cm2): 0.833 Bone mineral density about the L hip (g/cm2): 0.862 T Score values are as follows: -----R Neck: -1.5 -----L Neck: -1.3 -----R Total: -0.4 -----L Total: -0.4 Bone mineral density has: DECREASED -3.5 % since study of: 2017 IMPRESSION: Osteopenia (T Score between -2.5 and -1). There is slightly increased risk of fracture and the patient may be considered for treatment. Re-Screen 2-5 years. NOTE: T-SCORE=SD OF THE YOUNG ADULT MEAN.
--- NOTE | 2020-10-18 13:44 | MM ---
Reason for exam: screening (asymptomatic). Last mammogram was performed 2 years and 3 months ago. History: Patient is postmenopausal. Physical Findings: A clinical breast exam by your physician is recommended on an annual basis and results should be correlated with mammographic findings. MG 3D Screening Mammo W/Cad Bilateral CC and MLO view(s) were taken. Prior study comparison: July 27, 2018, bilateral MG 3d screening mammo w/cad. June 11, 2017, bilateral MG 3d screening mammo w/cad. The breast tissue is heterogeneously dense. This may lower the sensitivity of mammography. No significant changes when compared with prior studies. ASSESSMENT: Benign, BI-RAD 2 RECOMMENDATION: Routine screening mammogram of both breasts in 1 year.
== END | disposition home or self-care (01) ==
LOC: RADMAMWWP 10:55
PROVIDERS: ATTEND Obstetrics & Gynecology
DX: Z12.31 Encounter for screening mammogram for malignant neoplasm of breast (principal); M85.89 Other specified disorders of bone density and structure, multiple sites; Z78.0 Asymptomatic menopausal state
CPT/HCPCS: 77063; 77067; 77080

== ENCOUNTER → 2020-10-15 | Outpatient (CLI) | payer MEDICARE ==
[2020-10-15 20:54] LABS: T4, Free (Free Thyroxine) 0.9 ng/dL (0.80-1.80)
== END | disposition home or self-care (01) ==
LOC: LABWHC1 15:06
PROVIDERS: ATTEND Otolaryngology
DX: R53.83 Other fatigue (principal)
CPT/HCPCS: 36415; 84439; 84443; 86376

== ENCOUNTER → 2020-11-12 | Outpatient (CLI) | payer MEDICARE ==
--- NOTE | 2020-11-13 14:53 | US ---
EXAMINATION TYPE: US thyroid st tissue head/neck DATE OF EXAM: 11/12/2020 COMPARISON: NONE CLINICAL HISTORY: E04.1 thyroid nodule. Left medial neck palpable; takes thyroid medication GLAND SIZE: Right Lobe: 4.7 x 1.9 x 1.9 cm Overall Parenchyma: homogenous Left Lobe: 4.8 x 1.3 x 2.0 cm Overall Parenchyma: mildly heterogeneous Isthmus Thickness: 0.3 cm NODULES RIGHT: # of nodules measured on right: 0 LEFT: # of nodules measured on left: 1 1. 0.3 X 0.2 x 0.3 cm spongiform, hypoechoic nodule, which is taller than wide, with ill-defined ma rgins, without echogenic foci. ISTHMUS: # of nodules measured in the isthmus: 0 Bilateral neck scanned: superior to left thyroid couple of lymph nodes are seen with medial node = 0. 6 x0.6 x 0.4cm and lateral to left thyroid a couple of nodes are seen with larger = 1.1 x 0.6 x 0.2c m. IMPRESSION: There is a small hypoechoic nodule within the left lobe thyroid. 2017 ACR TI-RADS LEVEL: 2 *Highest TI-RADS level nodule reported
== END | disposition home or self-care (01) ==
LOC: RADUSWWP 16:58
PROVIDERS: ATTEND Otolaryngology
DX: E04.1 Nontoxic single thyroid nodule (principal)
CPT/HCPCS: 76536

== ENCOUNTER → 2021-10-16 | Outpatient (CLI) | payer MEDICARE ==
--- NOTE | 2021-10-20 17:44 | MM ---
Reason for Exam: Screening (asymptomatic). Last screening mammogram was performed 12 month(s) ago. Patient History: Menarche at age 14. First Full-Term at age 22. Right ovary removed at age 25. Postmenopausal. Risk Values: Shruthi 5 year model risk: 1.5%. NCI Lifetime model risk: 2.8%. Prior Study Comparison: 06/11/2017 Bilateral Screening Mammogram, [facility]. 07/27/2018 Bilateral Screening Mammogram, [facility]. 10/15/2020 Bilateral Screening Mammogram, [facility]. Tissue Density: The breast tissue is heterogeneously dense. This may lower the sensitivity of mammography. Findings: Analyzed By CAD. There is no suspicious group of microcalcifications or new suspicious mass in either breast. Overall Assessment: Benign, BI-RAD 2 Management: Screening Mammogram of both breasts in 1 year. 1. Patient should continue monthly self breast exams. 2. A clinical breast exam by your physician is recommended on an annual basis. 3. This exam should not preclude additional follow-up of suspicious palpable abnormalities. Electronically signed and approved by: Sofya Johnson M.D. Radiologist
== END | disposition home or self-care (01) ==
LOC: RADMAMWWP 10:59
PROVIDERS: ATTEND Family Medicine
DX: Z12.31 Encounter for screening mammogram for malignant neoplasm of breast (principal); Z78.0 Asymptomatic menopausal state
CPT/HCPCS: 77063; 77067

== ENCOUNTER → 2021-11-04 | Outpatient (CLI) | payer MEDICARE ==
--- NOTE | 2021-11-04 09:17 | US ---
EXAMINATION TYPE: US thyroid st tissue head/neck DATE OF EXAM: 11/04/2021 COMPARISON: 11/12/2020 CLINICAL HISTORY: E04.1 THYROID NODULE. f/u exam GLAND SIZE: Right Lobe: 3.6 x 1.7 x 2.4 cm Overall Parenchyma: heterogenous Left Lobe: 4.8 x 1.3 x 2.3 cm Overall Parenchyma: heterogeneous Isthmus Thickness: 0.6 cm NODULES RIGHT: # of nodules measured on right: 0 LEFT: # of nodules measured on left: 0 ISTHMUS: # of nodules measured in the isthmus: 0 Bilateral neck scanned, no evidence of lymphadenopathy. IMPRESSION: Tissue is somewhat heterogeneous correlate for thyroiditis. 2017 ACR TI-RADS LEVEL: TR-RADS 1 - BENIGN: No FNA *Highest TI-RADS level nodule reported
== END | disposition home or self-care (01) ==
LOC: RADUSWWP 08:48
PROVIDERS: ATTEND Otolaryngology
DX: E04.1 Nontoxic single thyroid nodule (principal)
CPT/HCPCS: 76536

== ENCOUNTER → 2022-10-19 | Outpatient (CLI) | payer MEDICARE ==
--- NOTE | 2022-10-21 07:09 | BD ---
EXAMINATION TYPE: Axial Bone Density DATE OF EXAM: 10/19/2022 CLINICAL HISTORY: 81 years old Female. ICD-10 CODE: M85.88 SCREENING Height: 58 in Weight: 138 lbs FRAX RISK QUESTIONS: Secondary Osteoporosis: 3. Menopause before 45: age 42 RISK FACTORS HISTORY OF: Active: yes Diet low in dairy products/other sources of calcium: yes Postmenopausal woman: age 42 MEDICATIONS: Thyroid Medications: yes Which medication: Levothyroxine How Lon years Additional Medications: calcium, vit d, EXAM MEASUREMENTS: Bone mineral densitometry was performed using the [employer] System. Bone mineral density as measured about the Lumbar spine is: ----- L1-L4(G/cm2): 1.329 T Score Values are as follows: ----- L1: -0.6 ----- L2: 0.0 ----- L3: 1.4 ----- L4: 3.3 ----- L1-L4: 1.2 Z Score Values are as follows: ----- L1: 1.3 ----- L2: 2.0 ----- L3: 3.3 ----- L4: 5.2 ----- L1-L4: 3.2 Bone mineral density has: Increased 2.8% since study of: 10/15/2020 Bone mineral density about the R hip (g/cm2): 0.944 Bone mineral density about the L hip (g/cm2): 0.963 T Score values are as follows: -----R Neck: -1.6 -----L Neck: -1.6 -----R Total: -0.5 -----L Total: -0.4 Z Score values are as follows: -----R Neck: 0.6 -----L Neck: 0.6 -----R Total: 1.5 -----L Total: 1.7 Bone mineral density has: Decreased -0.6% since study of: 10/15/2020 FRAX%s: The graph provided illustrates a 13.8% chance for a major osteoporotic fx and a 3.4% chance f or the hips probability for fx in 10 years time. IMPRESSION: Osteopenia (T Score between -2.5 and -1). There is slightly increased risk of fracture and the patient may be considered for treatment. Re-Screen 2-5 years. NOTE: T-SCORE=SD OF THE YOUNG ADULT MEAN.
--- NOTE | 2022-10-21 08:11 | MM ---
Reason for Exam: Screening (asymptomatic). Last mammogram was performed 1 year(s) and 1 month(s) ago. Patient History: Menarche at age 14. First Full-Term at age 22. Right ovary removed at age 25. Postmenopausal. Risk Values: Shruthi 5 year model risk: 1.5%. NCI Lifetime model risk: 2.5%. Prior Study Comparison: 07/27/2018 Bilateral Screening Mammogram, [facility]. 10/15/2020 Bilateral Screening Mammogram, [facility]. 10/16/2021 Bilateral MG 3D screening mammo w/cad, [facility]. Tissue Density: The breast tissue is heterogeneously dense. This may lower the sensitivity of mammography. Findings: Analyzed By CAD. There is no suspicious group of microcalcifications or new suspicious mass in either breast. Overall Assessment: Benign, BI-RAD 2 Management: Screening Mammogram of both breasts in 1 year. . Patient should continue monthly self-breast exams. A clinical breast exam by your physician is recommended on an annual basis. This exam should not preclude additional follow-up of suspicious palpable abnormalities. Note on Shruthi scores and lifetime risk: 1. A Shruthi score greater than 3% is considered moderate risk. If this is the case, consider specialist referral to assess eligibility for a risk reducing agent. 2. If overall lifetime risk for the development of breast cancer is 20% or higher, the patient may qualify for future screening with alternating mammogram and breast MRI. Electronically signed and approved by: Man Wesley M.D. Radiologis
== END | disposition home or self-care (01) ==
LOC: RADMAMWWP 14:33
PROVIDERS: ATTEND Obstetrics & Gynecology
DX: Z12.31 Encounter for screening mammogram for malignant neoplasm of breast (principal); M85.89 Other specified disorders of bone density and structure, multiple sites; Z78.0 Asymptomatic menopausal state
CPT/HCPCS: 77063; 77067; 77080